=== PATIENT | female | born 1940 | race Caucasian/White ===

== ENCOUNTER → 2017-01-23 | Outpatient (CLI) | payer MEDICARE, BC ==
[~2017-01-23] MED LIST: ARMOUR THYROID60 MG PO; ASPIRIN EC81 MG PO; CRANBERRY450 M1 PO; DELTASONE10 MG PO; DELTASONE5 MG PO; PRILOSEC20 MG PO; VITAMIN B-122000 MC1 PO
--- NOTE | ~2017-01-23 | ENPV ---
Vascular Lower Extremities DVT Study Procedure Demographics Patient Name TASHI GUPTA Date of Study 01/23/2017 Patient Number [id number] Gender Female Date of 1940 Age 76 Visit Number [id number] Height Accession Number [id number] Weight Room Number BSA BMI Referring Kehinde Webber MD Interpreting Tommy Acosta MD Physician Physician Physician Ordering Physician Kehinde Webber Flight Engineer Instructor Housekeeping Supervisor [facility] Conclusions Summary Evidence of DVT in right CFV. No evidence of DVT distal to right CFV. Calf veins bilaterally not well visualized cannot rule out small thrombus in calf. No evidence of DVT in the left leg. Procedure Type of Study: Veins:Lower Extremities DVT Study, Lower Extremity Left. Indications for Study:Swelling of Limb. Appropriate Use Criteria:9 Patient Status:Routine. Study Location:Vascular Lab. Technical Quality:Adequate visualization. Velocities are measured in cm/s ; Diameters are measured in cm Right Lower Extremities DVT Study Measurements Right 2D and Doppler Measurements + + + + +------+------+ + !Location !Visualized!Compressibility!Thrombosis!Signal!Reflux!Reflux ! ! ! ! ! ! ! !(sec) ! + + + + +------+------+ + !GSV Thigh !Yes !Partial !Sub-acute ! ! ! ! + + + + +------+------+ + !Common !Yes !Partial !Sub-acute ! ! ! ! !Femoral ! ! ! ! ! ! ! + + + + +------+------+ + !Prox !Yes !Yes !None ! ! ! ! !Femoral ! ! ! ! ! ! ! + + + + +------+------+ + !Dist !Yes !Yes !None ! ! ! ! !Femoral ! ! ! ! ! ! ! + + + + +------+------+ + !Popliteal !Yes !Yes !None ! ! ! ! + + + + +------+------+ + !PTV !Yes !Yes !None ! ! ! ! + + + + +------+------+ + !Peroneal !Yes !Yes !None ! ! ! ! + + + + +------+------+ + Left Lower Extremities DVT Study Measurements Left 2D and Doppler Measurements + + + + +------+------+ + !Location !Visualized!Compressibility!Thrombosis!Signal!Reflux!Reflux ! ! ! ! ! ! ! !(sec) ! + + + + +------+------+ + !GSV Thigh !Yes !Yes !None !Phasic!No ! ! + + + + +------+------+ + !Common !Yes !Yes !None !Phasic!No ! ! !Femoral ! ! ! ! ! ! ! + + + + +------+------+ + !Prox !Yes !Yes !None !Phasic!No ! ! !Femoral ! ! ! ! ! ! ! + + + + +------+------+ + !Mid Femoral!Yes !Yes !None !Phasic!No ! ! + + + + +------+------+ + !Dist !Yes !Yes !None !Phasic!No ! ! !Femoral ! ! ! ! ! ! ! + + + + +------+------+ + !Popliteal !Yes !Yes !None !Phasic!No ! ! + + + + +------+------+ + !Gastroc !Yes !Yes !None !Phasic!No ! ! + + + + +------+------+ + !PTV !Yes !Yes !None !Phasic!No ! ! + + + + +------+------+ + !Peroneal !Yes !Yes !None !Phasic!No ! ! + + + + +------+------+ + Signature dtt: JUAN MIGUEL SHIPLEY dtd: 01/23/17 1657 Physician Self Edit
== END | disposition disaster alternative care site (69) ==
LOC: GCAR 16:30
DX: M79.662 Pain in left lower leg (principal); I82.411 Acute embolism and thrombosis of right femoral vein; R60.0 Localized edema

== ENCOUNTER → 2017-02-09 | Outpatient (CLI) | payer MEDICARE, BC ==
--- NOTE | ~2017-02-09 | ENPV ---
Vascular Lower Extremities DVT Study Procedure Demographics Patient Name TASHI GUPTA Date of Study 02/09/2017 Patient Number [id number] Gender Female Date of 1940 Age 76 Visit Number [id number] Height Accession Number [id number] Weight Room Number BSA BMI Referring Rafael Angel MD Interpreting Tommy Acosta MD Physician Rafael Angel Physician Physician Ordering Physician Habitat Management Coordinator Auto Air Conditioning Mechanic Cecile Reina [facility] Conclusions Summary Sub Acute DVT noted in the Right Common femoral Junction Acute DVT noted in the Distal femoral vein and both the posterior and peroneal calf vessels of the left leg Positive for DVT Procedure Type of Study: Veins:Lower Extremities DVT Study, Venous Duplex Lower Extremity Bilateral. Appropriate Use Criteria:7 Patient Status:Routine. Velocities are measured in cm/s ; Diameters are measured in cm Right Lower Extremities DVT Study Measurements Right 2D and Doppler Measurements + + + + +------+------+ + !Location !Visualized!Compressibility!Thrombosis!Signal!Reflux!Reflux ! ! ! ! ! ! ! !(sec) ! + + + + +------+------+ + !GSV Thigh !Yes !Yes !None !Phasic!No ! ! + + + + +------+------+ + !Common !Yes !Partial !Sub-acute ! ! ! ! !Femoral ! ! ! ! ! ! ! + + + + +------+------+ + !Prox !Yes !Yes !None !Phasic!No ! ! !Femoral ! ! ! ! ! ! ! + + + + +------+------+ + !Mid Femoral!Yes !Yes !None !Phasic!No ! ! + + + + +------+------+ + !Dist !Yes !Yes !None !Phasic!No ! ! !Femoral ! ! ! ! ! ! ! + + + + +------+------+ + !Popliteal !Yes !Yes !None !Phasic!No ! ! + + + + +------+------+ + !Gastroc !Yes !Yes !None !Phasic!No ! ! + + + + +------+------+ + !PTV !Yes !Yes !None !Phasic!No ! ! + + + + +------+------+ + !Peroneal !Yes !Yes !None !Phasic!No ! ! + + + + +------+------+ + Left Lower Extremities DVT Study Measurements Left 2D and Doppler Measurements + + + + +------+------+ + !Location !Visualized!Compressibility!Thrombosis!Signal!Reflux!Reflux ! ! ! ! ! ! ! !(sec) ! + + + + +------+------+ + !GSV Thigh !Yes !Yes !None !Phasic!No ! ! + + + + +------+------+ + !Common !Yes !Yes !None !Phasic!No ! ! !Femoral ! ! ! ! ! ! ! + + + + +------+------+ + !Prox !Yes !Yes !None !Phasic!No ! ! !Femoral ! ! ! ! ! ! ! + + + + +------+------+ + !Mid Femoral!Yes !Yes !None !Phasic!No ! ! + + + + +------+------+ + !Dist !Yes !No !Acute ! ! ! ! !Femoral ! ! ! ! ! ! ! + + + + +------+------+ + !Popliteal !Yes !Yes !None !Phasic!No ! ! + + + + +------+------+ + !Gastroc !Yes !Yes !None !Phasic!No ! ! + + + + +------+------+ + !PTV !Yes !No !Acute ! !No ! ! + + + + +------+------+ + !Peroneal !Yes !No !Acute ! !No ! ! + + + + +------+------+ + Impressions Right Impression Sub Acute DVT noted in the Right Common femoral Junction Left Impression Acute DVT noted in the Distal femoral vein and both the posterior and peroneal calf vessels of the left leg Positive for DVT Signature dtt: JUAN MIGUEL SHIPLEY dtbrittanie: 02/09/17 4970 Physician Self Edit
== END | disposition disaster alternative care site (69) ==
LOC: GCAR 13:30
DX: M79.89 Other specified soft tissue disorders (principal); I82.412 Acute embolism and thrombosis of left femoral vein; I82.4Z2 Acute embolism and thrombosis of unspecified deep veins of left distal lower extremity; C91.11 Chronic lymphocytic leukemia of B-cell type in remission; D63.1 Anemia in chronic kidney disease; D59.1 Other autoimmune hemolytic anemias; M79.604 Pain in right leg; M79.605 Pain in left leg; N18.3 Chronic kidney disease, stage 3 (moderate)

== ENCOUNTER → 2017-03-02 | Outpatient (CLI) | payer MEDICARE, BC ==
--- NOTE | ~2017-03-02 | ENPV ---
Vascular Lower Extremities DVT Study Procedure Demographics Patient Name TASHI GUPTA Date of Study 03/02/2017 Patient Number [id number] Gender Female Date of 1940 Age 76 Visit Number [id number] Height Accession Number [id number] Weight Room Number BSA BMI Referring Felisa Rosa MD Interpreting Rick Diggs MD Physician Physician Physician Subhash Webber Mold Sheet Cleaner Physician PAEvi[employer] Dairy Equipment Specialist Behzad Ordonez T, [facility] Conclusions Summary TECHNIQUE: The veins of the lower extremities on the right and the left were evaluated from the groin to the ankle using gonzales scale, compression, and augmentation. Venous hemodynamics were evaluated with color flow and spectral Doppler. FINDINGS: The deep veins of the legs bilaterally show normal color flow and compressibility without thrombosis. IMPRESSION: NEGATIVE BILATERAL LOWER EXTREMITY VENOUS DOPPLER. Procedure Type of Study: Veins:Lower Extremities DVT Study, Lower Extremity Left, Venous Duplex Lower Extremity Bilateral. Indications for Study:Swelling and Pain. Appropriate Use Criteria:6 Patient Status:Routine. Study Location:Vascular Lab. Technical Quality:Limited visualization due to edema. - Preliminary reported to:Theresa Roth. Velocities are measured in cm/s ; Diameters are measured in cm Right Lower Extremities DVT Study Measurements Right 2D and Doppler Measurements + + + + +------+------+ + !Location !Visualized!Compressibility!Thrombosis!Signal!Reflux!Reflux ! ! ! ! ! ! ! !(sec) ! + + + + +------+------+ + !GSV Thigh !Yes !Yes !Chronic !Phasic! ! ! + + + + +------+------+ + !Common !Yes !Yes !Chronic !Phasic! ! ! !Femoral ! ! ! ! ! ! ! + + + + +------+------+ + !Prox !Yes !Yes !None !Phasic! ! ! !Femoral ! ! ! ! ! ! ! + + + + +------+------+ + !Mid Femoral!Yes !Yes !None !Phasic! ! ! + + + + +------+------+ + !Dist !Yes !Yes !None !Phasic! ! ! !Femoral ! ! ! ! ! ! ! + + + + +------+------+ + !Popliteal !Yes !Yes !None !Phasic! ! ! + + + + +------+------+ + !Gastroc !Yes !Yes !None !Phasic! ! ! + + + + +------+------+ + !PTV !Yes !Yes !None !Phasic! ! ! + + + + +------+------+ + !Peroneal !Yes !Yes !None !Phasic! ! ! + + + + +------+------+ + Left Lower Extremities DVT Study Measurements Left 2D and Doppler Measurements + + + + +------+------+ + !Location !Visualized!Compressibility!Thrombosis!Signal!Reflux!Reflux ! ! ! ! ! ! ! !(sec) ! + + + + +------+------+ + !GSV Thigh !Yes !Yes !None !Phasic! ! ! + + + + +------+------+ + !Common !Yes !Yes !None !Phasic! ! ! !Femoral ! ! ! ! ! ! ! + + + + +------+------+ + !Prox !Yes !Yes !None !Phasic! ! ! !Femoral ! ! ! ! ! ! ! + + + + +------+------+ + !Mid Femoral!Yes !Yes !None !Phasic! ! ! + + + + +------+------+ + !Dist !Yes !Yes !None !Phasic! ! ! !Femoral ! ! ! ! ! ! ! + + + + +------+------+ + !Popliteal !Yes !Yes !None !Phasic! ! ! + + + + +------+------+ + !Gastroc !Yes !Yes !None !Phasic! ! ! + + + + +------+------+ + !PTV !Yes !Yes !None !Phasic! ! ! + + + + +------+------+ + !Peroneal !Yes !Yes !None !Phasic! ! ! + + + + +------+------+ + Signature dtt: Jaime Cabrera dtd: 03/02/17 1557 Physician Self Edit
== END | disposition disaster alternative care site (69) ==
LOC: GCAR 15:51
DX: M79.89 Other specified soft tissue disorders (principal); L53.8 Other specified erythematous conditions; N18.3 Chronic kidney disease, stage 3 (moderate); D63.1 Anemia in chronic kidney disease; D59.1 Other autoimmune hemolytic anemias; R53.1 Weakness; C91.11 Chronic lymphocytic leukemia of B-cell type in remission; Z79.01 Long term (current) use of anticoagulants; Z86.718 Personal history of other venous thrombosis and embolism